=== PATIENT | male | born 1975 | race Caucasian/White ===

== ENCOUNTER 2022-03-14 09:43 | Emergency (ER) | payer BC ==
[~2022-03-14] VITALS: Ht 175.3 cm; Wt 90.7 kg
[2022-03-14] MEDS ORDERED: Prednisone20 MG PO (10:19)
[2022-03-14] MEDS ORDERED: TRIDERM28.4 GM TOP (10:19)
== END 2022-03-14 10:26 | disposition home or self-care (01) ==
LOC: ER 09:43
DX: L23.7 Allergic contact dermatitis due to plants, except food (principal); Z88.0 Allergy status to penicillin
CPT/HCPCS: 99283; J7512